=== PATIENT | male | born 1960 ===

== ENCOUNTER 2016-12-30 06:46 | Day surgery (SDC) | payer OTHER ==
[~2016-12-30] VITALS: Ht 167.6 cm; Wt 83.9 kg
--- NOTE | 2016-12-30 08:24 | Provider's Discharge Care Plan ---
Problem, Goal, Plan Problem List 1. S/P colonoscopy Goals: Screening Instructions: Follow up as needed, Take meds as directed, HIGH FIBER DIET
--- NOTE | 2016-12-30 08:24 | Provider's Discharge Care Plan ---
Problem, Goal, Plan Problem List 1. S/P colonoscopy Goals: Screening Instructions: Follow up as needed, Take meds as directed, HIGH FIBER DIET
--- NOTE | 2016-12-30 11:54 | OPERATIVE REPORT ---
DATE OF SURGERY: 12/30/2016 SURGEON: Tomasz Stauffer III, MD [employer]ING [employer]CEMENT OFFICER: None. PREOPERATIVE DIAGNOSIS: 1. History of colon polyps POSTOPERATIVE DIAGNOSIS: 1. Normal colonoscopy PROCEDURE PERFORMED: 1. Colonoscopy ANESTHESIA: TIVA. INDICATIONS: The patient is a 56-year-old male whose last colonoscopy was 3 years ago at which time he had 2-3 polyps removed. He is asymptomatic. SURGICAL FINDINGS: Normal-appearing cecum, ascending, transverse, descending colon, sigmoid colon, and rectal vault. SURGICAL TECHNIQUE: The patient was brought to the operating room and placed in the left lateral decubitus position, where he was administered TIVA and monitored closely by anesthesia. After proper anesthesia had taken effect, a digital rectal examination revealed no masses or stenosis. This was followed by the passage of a fiberoptic video flexible Olympus colonoscope which, without difficulty, negotiated to the cecum. The cecum was identified by anatomical landmarks and anterior abdominal wall ballottement. On withdrawing the scope, the aforementioned findings noted. The scope was withdrawn, retroflexed, good view of the rectal vault obtained. No pathology identified. The scope was completely withdrawn. The patient tolerated the procedure well and was transferred to the recovery room in stable condition. There were no intraoperative or anesthetic complications.
== END 2016-12-30 10:03 | disposition home or self-care (01) ==
LOC: SDC SRH 06:46 → OB SRH 06:49 → OR SRH 08:15 → SDC SRH 10:03 → OR SRH 12:30 → SDC SRH 13:00 → OR SRH 13:00
PROVIDERS: Specialist
PROC: 0DJD8ZZ Inspection of Lower Intestinal Tract, Via Natural or Artificial Opening Endoscopic (ICD-10-PCS; principal; 2016-12-30 08:15)
DX: Z12.11 Encounter for screening for malignant neoplasm of colon (principal); Z86.010 Personal history of colon polyps